=== PATIENT | female | born 1995 | race Hispanic/Latino ===

== ENCOUNTER 2022-01-15 06:06 | Emergency (ER) | payer BC, OTHER ==
[~2022-01-15] VITALS: Ht 154.9 cm; Wt 111.6 kg
[2022-01-15 07:07] LABS: HCG,QUAL RESULT NEGATIVE (NEGATIVE)
[2022-01-15 07:08] LABS: APPEARANCE,URINE Clear (CLEAR); BILIRUBIN,URINE Negative (NEGATIVE); COLOR,URINE Yellow (YELLOW); GLUCOSE, URINE (UA) Negative (NEGATIVE); KETONES,URINE Negative (NEGATIVE); LEUKOCYTE ESTERASE ,URINE Small (NEGATIVE); NITRATE,URINE Negative (NEGATIVE); OCCULT BLOOD,URINE Negative (NEGATIVE); PROTEIN,URINE Negative (NEGATIVE); UROBILINOGEN,URINE 0.2 mg/dL (0.2-1.0)
[2022-01-15] MEDS ORDERED: CYCLOBENZAPRINE HCL 10 MG TABLET PO ONE (08:00)
[2022-01-15] MEDS ORDERED: KETOROLAC 30MG VIAL (30MG/ML) IM ONE (08:00)
[2022-01-15] MEDS ORDERED: CYCL7.5T27 PO (09:06)
[2022-01-15] MEDS ORDERED: NAPR375T6 PO (09:06)
[2022-01-15 10:00] VITALS: BP 103/51
== END 2022-01-15 10:08 | disposition home or self-care (01) ==
LOC: EDH 06:06
DX: S39.012A Strain of muscle, fascia and tendon of lower back, initial encounter (principal); Z88.0 Allergy status to penicillin; X58.XXXA Exposure to other specified factors, initial encounter; Y93.89 Activity, other specified; Y92.89 Other specified places as the place of occurrence of the external cause; Y99.8 Other external cause status
CPT/HCPCS: 72100; 81003; 81025; 96372; 99284; J1885

== ENCOUNTER → 2023-06-10 | Outpatient (CLI) | payer OTHER ==
[~2023-06-10] MED LIST: CYCL7.5T27 PO; NAPR375T6 PO
[2023-06-10 08:22] LABS: BASOPHILS # (AUTO) 0.04 K/uL (0.00-0.20); BASOPHILS % (AUTO) 0.5 % (0.0-5.0); EOSINOPHILS # (AUTO) 0.19 K/uL (0.00-0.70); EOSINOPHILS % (AUTO) 2.3 % (0.0-8.0); HEMATOCRIT 43.2 % (36-48); IMMATURE GRANULOCYTE ABSOLUTE 0.04 K/uL (0-1); LYMPHOCYTES # (AUTO) 2.3 K/uL (1.0-4.8); MEAN CORPUSCULAR HEMOGLOBIN 29.1 pg (27.0-33.0); MEAN CORPUSCULAR HGB CONC 33.1 g/dL (32.0-36.0); MONOCYTES # (AUTO) 0.6 K/uL (0.1-1.0); MONOCYTES % (AUTO) 6.7 % (3.0-13.0); NEUTROPHILS # (AUTO) 5.2 K/uL (1.8-7.7); PLATELET COUNT (AUTO) 310 K/uL (130-400); RED BLOOD CELL COUNT(AUTO) 4.91 MIL/uL (4.00-5.50); RED CELL DISTRIBUTION WIDTH 12.6 % (11.0-15.5); WHITE BLOOD COUNT (AUTO) 8.4 K/uL (4.8-10.8)
[2023-06-10 08:26] LABS: BILIRUBIN,URINE NEGATIVE (NEGATIVE); COLOR,URINE YELLOW (YELLOW); GLUCOSE, URINE (UA) NEGATIVE (NEGATIVE); KETONES,URINE NEGATIVE (NEGATIVE); LEUKOCYTE ESTERASE ,URINE 75 Leu/uL (NEGATIVE); NITRATE,URINE NEGATIVE (NEGATIVE); OCCULT BLOOD,URINE NEGATIVE (NEGATIVE); PROTEIN,URINE 10 mg/dL (NEGATIVE); UROBILINOGEN,URINE 0.2 mg/dL (0.2-1.0)
[2023-06-10 08:27] LABS: ADD UA MICROSCOPIC YES; APPEARANCE,URINE HAZY (CLEAR)
[2023-06-10 08:37] LABS: HEMOGLOBIN A1C 5.6 % (4.0-6.0)
[2023-06-10 08:40] LABS: BACTERIA,URINE FEW /HPF (None Seen); MUCUS,URINE RARE LPF (None Seen); RBC,URINE 0-1 /HPF (0-1); SQUAMOUS EPITHELIAL CELL,UR MOD /HPF (0-2)
[2023-06-10 09:27] LABS: ALBUMIN 3.5 g/dL (3.5-5.0); BILIRUBIN,DIRECT 0.1 mg/dL (0.0-0.3); BILIRUBIN,TOTAL 0.3 mg/dL (0.2-1.0); CREATININE 0.8 mg/dL (0.5-1.5); POTASSIUM 3.8 mmol/L (3.5-5.1); THYROID STIMULATING HORMONE 3.12 uIU/mL (0.36-3.74); TOTAL PROTEIN, SERUM 7.6 g/dL (6.0-8.3); URIC ACID 6.8 mg/dL (2.6-7.2)
== END | disposition home or self-care (01) ==
LOC: LAB 07:29
PROVIDERS: ATTEND Internal Medicine
DX: Z00.00 Encounter for general adult medical examination without abnormal findings (principal); Z13.1 Encounter for screening for diabetes mellitus; Z13.220 Encounter for screening for lipoid disorders; Z13.29 Encounter for screening for other suspected endocrine disorder; E66.01 Morbid (severe) obesity due to excess calories; G43.809 Other migraine, not intractable, without status migrainosus; G93.2 Benign intracranial hypertension; H60.90 Unspecified otitis externa, unspecified ear; H65.499 Other chronic nonsuppurative otitis media, unspecified ear; J30.9 Allergic rhinitis, unspecified; N80.9 Endometriosis, unspecified; R53.83 Other fatigue
CPT/HCPCS: 36415; 80053; 80061; 80076; 81001; 82043; 82306; 82570; 82607; 82728; 83036; 84443; 84550; 85025; 87088

== ENCOUNTER 2023-10-04 14:15 | Emergency (ER) | payer OTHER ==
[~2023-10-04] VITALS: Ht 154.9 cm; Wt 123.4 kg
[2023-10-04] MEDS: HYDROCODONE/ACETAMINOPHEN 5/325 MG TAB PO ONE (15:02)
[2023-10-04] MEDS: DEXAMETHASONE SOD PHOSPHATE 4 MG/ML 1ML VIAL IM ONE (15:02)
[2023-10-04] MEDS: CYCLOBENZAPRINE HCL 10 MG TABLET PO ONE (15:02)
[2023-10-04] MEDS: KETOROLAC 60 MG VIAL (30MG/ML) IM ONE (15:03)
[2023-10-04] MEDS ORDERED: IBUP-2077 PO (15:54)
[2023-10-04] MEDS ORDERED: CYCL-309 PO (15:54)
[2023-10-04 16:03] VITALS: BP 132/74; PULSE 88; RESP 18; O2SAT 98
== END 2023-10-04 16:34 | disposition home or self-care (01) ==
LOC: EDH 14:15
DX: S39.012A Strain of muscle, fascia and tendon of lower back, initial encounter (principal); E66.9 Obesity, unspecified; M41.9 Scoliosis, unspecified; Z90.49 Acquired absence of other specified parts of digestive tract; Z90.89 Acquired absence of other organs; Z79.899 Other long term (current) drug therapy; Z98.890 Other specified postprocedural states; Z88.0 Allergy status to penicillin; X58.XXXA Exposure to other specified factors, initial encounter; Y93.89 Activity, other specified; Y92.89 Other specified places as the place of occurrence of the external cause; Y99.8 Other external cause status
CPT/HCPCS: 99284; 81025; 72100; 96372 ×2; J1100; J1885

== ENCOUNTER → 2023-10-09 | Outpatient (CLI) | payer OTHER ==
[~2023-10-09] MED LIST changes: +CYCL-309 PO; +IBUP-2077 PO
[2023-10-09 08:00] LABS: BASOPHILS # (AUTO) 0.07 K/uL (0.00-0.20); BASOPHILS % (AUTO) 0.6 % (0.0-5.0); EOSINOPHILS % (AUTO) 1.8 % (0.0-8.0); HEMATOCRIT 45.3 % (36-48); IMMATURE GRANULOCYTE ABSOLUTE 0.11 K/uL (0-1); LYMPHOCYTES # (AUTO) 4.8 K/uL (1.0-4.8); LYMPHOCYTES % (AUTO) 42.1 % (21.0-51.0); MEAN CORPUSCULAR HEMOGLOBIN 28.8 pg (27.0-33.0); MEAN CORPUSCULAR HGB CONC 33.1 g/dL (32.0-36.0); MEAN CORPUSCULAR VOLUME 87.1 fL (79-99); MONOCYTES # (AUTO) 0.8 K/uL (0.1-1.0); MONOCYTES % (AUTO) 7.4 % (3.0-13.0); NEUTROPHILS # (AUTO) 5.3 K/uL (1.8-7.7); NEUTROPHILS % (AUTO) 47.1 % (40.0-77.0); PLATELET COUNT (AUTO) 355 K/uL (130-400); RED CELL DISTRIBUTION WIDTH 12.7 % (11.0-15.5); WHITE BLOOD COUNT (AUTO) 11.3 K/uL (4.8-10.8)
[2023-10-09 08:37] LABS: HEMOGLOBIN A1C 5.7 % (4.0-6.0)
[2023-10-09 08:38] LABS: ALBUMIN 3.3 g/dL (3.5-5.0); BILIRUBIN,DIRECT 0.1 mg/dL (0.0-0.3); BILIRUBIN,TOTAL 0.3 mg/dL (0.2-1.0); CREATININE 0.9 mg/dL (0.5-1.5); POTASSIUM 3.9 mmol/L (3.5-5.1); THYROID STIMULATING HORMONE 7.73 uIU/mL (0.36-3.74); TOTAL PROTEIN, SERUM 6.8 g/dL (6.0-8.3)
== END | disposition home or self-care (01) ==
LOC: LAB 07:23
PROVIDERS: ATTEND Internal Medicine
DX: Z13.220 Encounter for screening for lipoid disorders (principal); Z13.1 Encounter for screening for diabetes mellitus; R53.83 Other fatigue
CPT/HCPCS: 36415; 80053; 80061; 80076; 82607; 83036; 84443; 85025

== ENCOUNTER → 2023-11-20 | Outpatient (CLI) | payer OTHER | END | disposition home or self-care (01) | LOC: RAH 10:45 | PROVIDERS: ATTEND Internal Medicine | DX: E04.2 Nontoxic multinodular goiter (principal) | CPT/HCPCS: 76536 ==

== ENCOUNTER → 2024-05-21 | Outpatient (CLI) | payer OTHER ==
[~2024-05-21] MED LIST changes: +NAPR-1505 PO; -NAPR375T6 PO
[2024-05-21 08:15] LABS: BASOPHILS # (AUTO) 0.03 K/uL (0.00-0.20); BASOPHILS % (AUTO) 0.3 % (0.0-5.0); EOSINOPHILS # (AUTO) 0.25 K/uL (0.00-0.70); EOSINOPHILS % (AUTO) 2.8 % (0.0-8.0); HEMATOCRIT 44.9 % (36-48); IMMATURE GRANULOCYTE ABSOLUTE 0.05 K/uL (0-1); LYMPHOCYTES # (AUTO) 2.4 K/uL (1.0-4.8); LYMPHOCYTES % (AUTO) 26.7 % (21.0-51.0); MEAN CORPUSCULAR HEMOGLOBIN 28.8 pg (27.0-33.0); MEAN CORPUSCULAR HGB CONC 33.4 g/dL (32.0-36.0); MEAN CORPUSCULAR VOLUME 86.2 fL (79-99); MONOCYTES # (AUTO) 0.7 K/uL (0.1-1.0); MONOCYTES % (AUTO) 7.3 % (3.0-13.0); NEUTROPHILS # (AUTO) 5.6 K/uL (1.8-7.7); NEUTROPHILS % (AUTO) 62.3 % (40.0-77.0); PLATELET COUNT (AUTO) 348 K/uL (130-400); RED BLOOD CELL COUNT(AUTO) 5.21 MIL/uL (4.00-5.50); RED CELL DISTRIBUTION WIDTH 12.9 % (11.0-15.5)
[2024-05-21 08:21] LABS: APPEARANCE,URINE CLEAR (CLEAR); BILIRUBIN,URINE NEGATIVE (NEGATIVE); COLOR,URINE LIGHT-YELLOW (YELLOW); GLUCOSE, URINE (UA) NEGATIVE (NEGATIVE); KETONES,URINE NEGATIVE (NEGATIVE); LEUKOCYTE ESTERASE ,URINE NEGATIVE Leu/uL (NEGATIVE); NITRATE,URINE NEGATIVE (NEGATIVE); OCCULT BLOOD,URINE NEGATIVE (NEGATIVE); PROTEIN,URINE NEGATIVE (NEGATIVE); UROBILINOGEN,URINE 0.2 mg/dL (0.2-1.0)
[2024-05-21 08:25] LABS: ADD UA MICROSCOPIC NO
[2024-05-21 08:25] LABS: HEMOGLOBIN A1C 5.4 % (4.0-6.0)
[2024-05-21 09:01] LABS: ALBUMIN 3.5 g/dL (3.5-5.0); BILIRUBIN,TOTAL 0.4 mg/dL (0.2-1.0); CREATININE 0.9 mg/dL (0.5-1.0); THYROID STIMULATING HORMONE 4.15 uIU/mL (0.36-3.74); TOTAL PROTEIN, SERUM 7.9 g/dL (6.0-8.3)
== END | disposition home or self-care (01) ==
LOC: LAB 07:22
PROVIDERS: ATTEND Internal Medicine
DX: Z13.220 Encounter for screening for lipoid disorders (principal); Z13.1 Encounter for screening for diabetes mellitus; R53.83 Other fatigue; E03.9 Hypothyroidism, unspecified; E04.1 Nontoxic single thyroid nodule; E53.8 Deficiency of other specified B group vitamins; G93.2 Benign intracranial hypertension
CPT/HCPCS: 36415; 80053; 80061; 81003; 82043; 82306; 82570; 82607; 83036; 84443; 85025

== ENCOUNTER → 2024-07-01 | Outpatient (CLI) | payer OTHER ==
[2024-07-01 08:50] LABS: BASOPHILS # (AUTO) 0.04 K/uL (0.00-0.20); BASOPHILS % (AUTO) 0.4 % (0.0-5.0); EOSINOPHILS # (AUTO) 0.28 K/uL (0.00-0.70); EOSINOPHILS % (AUTO) 2.9 % (0.0-8.0); HEMATOCRIT 44.3 % (36-48); IMMATURE GRANULOCYTE ABSOLUTE 0.05 K/uL (0-1); LYMPHOCYTES # (AUTO) 2.5 K/uL (1.0-4.8); LYMPHOCYTES % (AUTO) 25.9 % (21.0-51.0); MEAN CORPUSCULAR HEMOGLOBIN 29.1 pg (27.0-33.0); MEAN CORPUSCULAR HGB CONC 33.4 g/dL (32.0-36.0); MONOCYTES # (AUTO) 0.8 K/uL (0.1-1.0); MONOCYTES % (AUTO) 8.1 % (3.0-13.0); NEUTROPHILS # (AUTO) 6.1 K/uL (1.8-7.7); NEUTROPHILS % (AUTO) 62.2 % (40.0-77.0); PLATELET COUNT (AUTO) 315 K/uL (130-400); RED BLOOD CELL COUNT(AUTO) 5.09 MIL/uL (4.00-5.50); RED CELL DISTRIBUTION WIDTH 12.7 % (11.0-15.5); WHITE BLOOD COUNT (AUTO) 9.8 K/uL (4.8-10.8)
[2024-07-01 08:52] LABS: HEMOGLOBIN A1C 5.3 % (4.0-6.0)
[2024-07-01 09:24] LABS: ALBUMIN 3.2 g/dL (3.5-5.0); BILIRUBIN,TOTAL 0.4 mg/dL (0.2-1.0); CREATININE 0.8 mg/dL (0.5-1.0); POTASSIUM 4.2 mmol/L (3.5-5.1); THYROID STIMULATING HORMONE 3.23 uIU/mL (0.36-3.74); TOTAL PROTEIN, SERUM 7.2 g/dL (6.0-8.3)
== END | disposition home or self-care (01) ==
LOC: LAB 07:34
PROVIDERS: ATTEND Internal Medicine
DX: Z13.1 Encounter for screening for diabetes mellitus (principal); E03.9 Hypothyroidism, unspecified; E04.1 Nontoxic single thyroid nodule; E66.01 Morbid (severe) obesity due to excess calories; E78.5 Hyperlipidemia, unspecified; F43.9 Reaction to severe stress, unspecified
CPT/HCPCS: 36415; 80053; 80061; 82306; 82607; 83036; 84443; 85025

== ENCOUNTER 2024-09-06 17:06 | Emergency (ER) | payer OTHER ==
[~2024-09-06] VITALS: Ht 154.9 cm; Wt 129.3 kg
--- NOTE | 2024-09-06 17:22 | ERN ---
ED Note History of Present Illness Stated Complaint: BACK PAIN Chief Complaint: Back Pain-No Injury Time Seen by MD: 17:09 Time Seen by Midlevel: 17:09 Dictation: The patient is a 29-year-old female with a history of tonsillectomy who presents to the emergency department with complaints of lower back pain onset yesterday after bending down to cover some plants. Patient denies any urinary or fecal incontinence. Denies any other injuries. Allergies: Coded Allergies: Penicillins (Unverified Allergy, Unknown, 01/15/22) Home Meds Active Scripts Cyclobenzaprine HCl (Flexeril) 10 Mg Tab, 10 MG PO TID for muscle sstiffness, #14 TAB 0 Refills Prov:DANIEL FATIMA JUTE BAG CUTTING MACHINE OPERATOR 09/06/24 Ibuprofen (Ibuprofen) 600 Mg Tablet, 600 MG PO Q6H PRN for PAIN, #15 TAB Prov:DANIEL FATIMA JUTE BAG CUTTING MACHINE OPERATOR 09/06/24 Cyclobenzaprine HCl (Cyclobenzaprine HCl) 10 Mg Tablet, 10 MG PO TID for 7 Days, #21 TAB Prov:MARIA R CHAVARRIA ENVIRONMENTAL RESEARCH PROJECT MANAGER 10/04/23 Ibuprofen (Ibuprofen 800 mg Tab) 800 Mg Tab, 800 MG PO Q8H PRN for fever or pain, #30 TAB 0 Refills Prov:MARIA R CHAVARRIA ENVIRONMENTAL RESEARCH PROJECT MANAGER 10/04/23 Naproxen (Naproxen) 375 Mg Tablet.dr, 500 MG PO BID for 7 Days, #14 TAB Prov:PRIYANK ZAYAS MD 01/15/22 Cyclobenzaprine HCl (Cyclobenzaprine HCl) 7.5 Mg Tablet, 7.5 MG PO ACDINNER for 7 Days, #7 TAB Prov:PRIYANK ZAYAS MD 01/15/22 Past Medical History Past Medical History: No Pertinent History Surgical History: Tonsillectomy, Other Surgical History Other: LP X4 History: Not Applicable LMP: Aug 22, 2024 RN Note Reviewed/Agreed w/PFSH: Yes Review of System Dictation Constitutional: Negative for fever,chills, and weight loss Eyes: Negative for injury, pain,redness, and discharge ENT: Negative for injury,pain or swelling Cardiovascular: Negative for chest pain, palpitations, and edema Respiratory: Negative for shortness of breath, cough, and wheezing, Abdomen/GI: Negative for abdominal pain, nausea, vomiting, diarrhea, and constipation Back: Positive for low back pain : Negative for injury, bleeding and discharge MS/Extremity: Negative for injury and deformity Skin: Negative for rash, and discoloration Neuro: Negative for headache, weakness, numbness, tingling, and seizure Psych: Negative for suicide ideation, homicidal ideation, and hallucinations Initial Vital Sign VS Vital Signs Date Time Temp Pulse Resp B/P (MAP) Pulse Ox O2 Delivery O2 Flow Rate FiO2 09/06/24 17:10 97.9 89 16 184/117 97 Room Air 0 09/06/24 19:34 21 Physical Exam Dictation Vital Signs reviewed General Appearance: Alert, oriented x 3, no acute distress, well developed, nourished. Head and Face: non-traumatic. Eyes: PERRL, pink conjunctivas, eyelid no trauma, anterior chamber with arcus senilis. Ears: Pinnas intact and no signs of trauma or erythema ear canals clear and no discharge TM no erythema Nose: No discharge, no bleeding. Oropharynx: Mouth normal, tongue pink. pharynx clear,no erythema, tonsils no exudates, no abscesses noted, mucous membrane moist Neck: Supple, non-tender, no thyromegaly, no masses, no JVD, no bruits Breast:Deferred Chest:No tenderness, no crepitus, no paradoxical movement, no retractions Lungs:Clear, well-ventilated, symmetric, no rales, no wheezing, no rhonchi, no stridor, good breath sounds bilaterally Heart: Regular rate, regular rhythm, no murmur, no gallops Vascular: no peripheral edema, dorsalis pedis 3+ bilaterally Abdomen: Soft, positive bowel sounds, nondistended, no guarding, nontender, no rebound, no masses no hepatomegaly, no splenomegaly, no Dee's sign, no hernias. Rectal: Deferred Genital: Deferred Neurological: Normal speech, motor function intact, sensory function intact Musculoskeletal: Neck nontender, full range of motion, + nontender, full range of motion, Extremities: nontender, full range of motion Skin: Color pink, dry, no turgor, no rash, no lacerations, no abrasions, no contusions. Lymphatic: Deferred Results (Laboratory/Radiology) Laboratory/Radiology Laboratory Tests Test 09/06/24 19:03 Urine Color YELLOW (YELLOW) Urine Appearance CLOUDY (CLEAR) H Urine pH 6.0 (5.0-8.0) Urine Specific [place] OVER (1.001-1.031) Urine Protein 50 mg/dL (NEGATIVE) H Urine Glucose (UA) NEGATIVE mg/dL (NEGATIVE) Urine Ketones 5 mg/dL (NEGATIVE) H Urine Occult Blood NEGATIVE (NEGATIVE) Urine Nitrate NEGATIVE (NEGATIVE) Urine Bilirubin NEGATIVE mg/dL (NEGATIVE) Urine Urobilinogen 0.2 mg/dL (0.2-1.0) Urine Leukocyte Esterase 25 Chanda/uL (NEGATIVE) H Urine RBC 2-5 /HPF (0-1) H Urine WBC 2-5 /HPF (0-1) H Urine Squamous Epithelial Cells FEW /HPF (0-2) Urine Bacteria RARE /HPF (None Seen) Urine HCG, Qualitative NEGATIVE (NEGATIVE) REASON: back pain ORDERING PHYSICIAN: DANIEL FATIMA JUTE BAG CUTTING MACHINE OPERATOR PROCEDURE: LUMB 2 3VW - LUMBAR SPINE 2-3VWS EXAM: LUMBAR SPINE 2-3VWS CLINICAL HISTORY: back pain COMPARISON:10/04/2023. TECHNIQUE: AP lateral and L5-S1 spot images of the lumbar spine were obtained. FINDINGS: Vertebral bodies have normal height and are well aligned. No fracture identified. Disc interspace heights are preserved. Soft tissues appear unremarkable. IMPRESSION: Normal lumbar spine. Labs Reviewed?: Yes ED Course ED Course Orders Procedure Category Date Status Time Urinalysis Profile LAB 09/06/24 Complete 17:13 ,Urine Test LAB 09/06/24 Complete 17:13 Orphenadrine Citrate PHA 09/06/24 Complete (Norflex) 17:30 Triamcinolone Acet PHA 09/06/24 Complete 40mg/Ml 1ml (Kenalog 17:30 Lumbar Spine 2-3vws RAD 09/06/24 Resulted 17:19 Ketorolac 60mg/2ml PHA 09/06/24 Complete (Toradol 60mg/2ml) 20:30 Hydrocodone/Apap PHA 09/06/24 Complete 5/325 ([place] 5/325mg) 20:30 Current Medications Medications (Trade) Dose Ordered Sig/Bia Route PRN Reason Start Time Stop Time Status Last Admin Dose Admin Acetaminophen/ Hydrocodone Bitart (NORco 5/325MG) 1 tab ONCE ONCE PO 09/06/24 20:30 09/06/24 20:31 DC 09/06/24 21:36 Ketorolac Tromethamine (toRADol 60MG/ 2ML) 60 mg ONCE ONCE IM 09/06/24 20:30 09/06/24 20:31 DC 09/06/24 21:36 Orphenadrine Citrate (Norflex) 60 mg ONCE ONCE IM 09/06/24 17:30 09/06/24 17:31 DC 09/06/24 19:22 Triamcinolone Acetonide (Kenalog 40) 40 mg ONCE ONCE IM 09/06/24 17:30 09/06/24 17:31 DC 09/06/24 19:22 Vital Signs Date Time Temp Pulse Resp B/P (MAP) Pulse Ox O2 Delivery O2 Flow Rate FiO2 09/06/24 19:34 98.2 83 16 140/93 98 Room Air* 0 21 09/06/24 17:10 97.9 89 16 184/117 97 Room Air 0 Medical Decision Making MDM The patient is a 29-year-old female with a history of tonsillectomy who presents to the emergency department with complaints of lower back pain onset yesterday after bending down to cover some plants. Patient denies any urinary or fecal incontinence. Denies any other injuries. No obvious fractures on x-ray. Patient reports some improvement with pain medi cation. Patient continues in no acute distress, urinary or fecal incontinence, no decreased sensation. Differential diagnosis: Lumbar fracture, back strain, kidney stone Need for hospitalization: Patient does not meet criteria for hospitalization. There are no social concerns with this patient. DX & DISP Disposition: Discharge Departure Impression: Primary Impression: Lumbar strain Additional Impression: Low back pain Condition: Stable Scripts Cyclobenzaprine HCl (Flexeril) 10 Mg Tab 10 MG PO TID for muscle sstiffness, #14 TAB 0 Refills Prov: DANIEL FATIMA JUTE BAG CUTTING MACHINE OPERATOR 09/06/24 Ibuprofen (Ibuprofen) 600 Mg Tablet 600 MG PO Q6H PRN for PAIN, #15 TAB Prov: DANIEL FATIMA JUTE BAG CUTTING MACHINE OPERATOR 09/06/24 Additional Instructions: Please follow up with your primary doctor in 1-2 days. If symptoms worsen please return to ER. FOLLOW-UP WITH PRIMARY CARE PROVIDER IN 1 TO 2 DAYS. TAKE MEDICATIONS DIRECTED HERE IN THE EMERGENCY ROOM. OKAY TO CONTINUE HOME MEDICATIONS UNLESS OTHERWISE DISCUSSED DURING YOUR VISIT IN THE EMERGENCY ROOM TODAY. RETURN TO YOUR NEAREST EMERGENCY ROOM IF SYMPTOMS WORSEN OR IF THERE IS NO IMPROVEMENT. CALL 911 IF YOU NEED IMMEDIATE ASSISTANCE. TAKE TYLENOL OR MOTRIN [id number] NEEDED AND IF NO CONTRAINDICATIONS ARE PRESENT. INCREASE ORAL HYDRATION. A WOUND CULTURE OR URINE CULTURE WAS ORDERED HERE IN THE EMERGENCY ROOM DEPARTMENT PLEASE FOLLOW-UP WITH PRIMARY CARE PROVIDER AND ADVISE THEM TO GET REPEAT PORTS FROM OUR FACILITY. IF YOU HAD ANY JOSEFA WRAP/SPLINTS THAT WERE APPLIED HERE, PLEASE DO NOT REMOVE THEM UNTIL YOU SEE YOUR PRIMARY CARE OR SPECIALTY. Referrals: ADDISON GALLEGOS MD (PCP) Time of Disposition: 21:46 I have reviewed the case, and I agree with, Diagnosis and Plan DANIEL FATIMA Sep 06, 2024 17:21 SONIA SIEGEL DO Sep 07, 2024 03:35
--- NOTE | 2024-09-06 18:39 | NUR ---
pt arrived ft at this time
[2024-09-06] MEDS: ORPHENADRINE 60MG/2ML IM ONE (19:22)
[2024-09-06] MEDS: TRIAMCINOLONE ACETONIDE 40 MG/ML 1ML VIAL IM ONE (19:22)
[2024-09-06 19:29] LABS: APPEARANCE,URINE CLOUDY (CLEAR); BILIRUBIN,URINE NEGATIVE (NEGATIVE); COLOR,URINE YELLOW (YELLOW); GLUCOSE, URINE (UA) NEGATIVE (NEGATIVE); HCG,QUALITATIVE URINE NEGATIVE (NEGATIVE); KETONES,URINE 5 mg/dL (NEGATIVE); LEUKOCYTE ESTERASE ,URINE 25 Leu/uL (NEGATIVE); NITRATE,URINE NEGATIVE (NEGATIVE); OCCULT BLOOD,URINE NEGATIVE (NEGATIVE); PROTEIN,URINE 50 mg/dL (NEGATIVE); UROBILINOGEN,URINE 0.2 mg/dL (0.2-1.0)
[2024-09-06 19:30] LABS: ADD UA MICROSCOPIC YES
[2024-09-06 19:31] LABS: BACTERIA,URINE RARE /HPF (None Seen); MUCUS,URINE FEW LPF (None Seen); SQUAMOUS EPITHELIAL CELL,UR FEW /HPF (0-2)
[2024-09-06 19:34] VITALS: BP 140/93; PULSE 83; RESP 16; TEMP 98.3; O2SAT 98
--- NOTE | 2024-09-06 20:09 | NUR ---
transfered care to [facility] at this time
[2024-09-06] MEDS: ketOROlac 60 MG VIAL (30MG/ML) IM ONE (21:36)
[2024-09-06] MEDS: HYDROcodone/APAP 5/325 1 TAB TABLET PO ONE (21:36)
[2024-09-06] MEDS ORDERED: IBUP-2070 PO (21:44)
[2024-09-06] MEDS ORDERED: CYCL10TA16 PO (21:44)
--- NOTE | 2024-09-06 21:51 | HMCIMG ---
EXAM: LUMBAR SPINE 2-3VWS CLINICAL HISTORY: back pain COMPARISON:10/04/2023. TECHNIQUE: AP lateral and L5-S1 spot images of the lumbar spine were obtained. FINDINGS: Vertebral bodies have normal height and are well aligned. No fracture identified. Disc interspace heights are preserved. Soft tissues appear unremarkable. IMPRESSION: Normal lumbar spine.
== END 2024-09-06 22:05 | disposition home or self-care (01) ==
LOC: EDH 17:06
DX: S39.012A Strain of muscle, fascia and tendon of lower back, initial encounter (principal); Z88.0 Allergy status to penicillin; Z90.89 Acquired absence of other organs; X58.XXXA Exposure to other specified factors, initial encounter; Y93.89 Activity, other specified; Y92.89 Other specified places as the place of occurrence of the external cause; Y99.8 Other external cause status
CPT/HCPCS: 99284; 81001; 81025; 72100; 96372 ×3; J1885; J3301; J2360

== ENCOUNTER → 2024-10-08 | Outpatient (CLI) | payer OTHER ==
[~2024-10-08] MED LIST changes: +CYCL10TA16 PO; +IBUP-2070 PO
--- NOTE | 2024-10-08 15:02 | HMCIMG ---
US THYROID/NECK REASON: NONTOXIC SINGLE THYROID NODULE COMPARISON: 11/20/2023 TECHNIQUE: Routine thyroid sonogram was performed and compared to previous exam. FINDINGS: There is homogeneous appearing thyroid parenchyma. Right lobe is 4.2 x 1.1 x 1.4 cm, left 3.4 x 0.8 x 0.9 cm. There are no cysts or masses present in the right lobe. The small cyst seen on prior exam is normal Identified. Isthmus appears unremarkable. There is a 4 mm nodule lower pole left lobe. This has decreased in size from 6 mm on prior exam. IMPRESSION: 1. 4 mm nodule lower pole left lobe of the thyroid, decreased from 6 mm on prior exam. Otherwise normal thyroid sonogram.
== END | disposition home or self-care (01) ==
LOC: RAH 14:18
PROVIDERS: ATTEND Internal Medicine
DX: E04.1 Nontoxic single thyroid nodule (principal)
CPT/HCPCS: 76536

== ENCOUNTER → 2024-12-30 | Outpatient (CLI) | payer OTHER ==
[2024-12-30 08:14] LABS: BASOPHILS # (AUTO) 0.03 K/uL (0.00-0.20); BASOPHILS % (AUTO) 0.3 % (0.0-5.0); EOSINOPHILS # (AUTO) 0.22 K/uL (0.00-0.70); EOSINOPHILS % (AUTO) 2.2 % (0.0-8.0); HEMATOCRIT 47.5 % (36-48); IMMATURE GRANULOCYTE ABSOLUTE 0.08 K/uL (0-1); LYMPHOCYTES # (AUTO) 2.6 K/uL (1.0-4.8); LYMPHOCYTES % (AUTO) 26.1 % (21.0-51.0); MEAN CORPUSCULAR HEMOGLOBIN 29.5 pg (27.0-33.0); MEAN CORPUSCULAR HGB CONC 33.3 g/dL (32.0-36.0); MEAN CORPUSCULAR VOLUME 88.8 fL (79-99); MONOCYTES # (AUTO) 0.8 K/uL (0.1-1.0); MONOCYTES % (AUTO) 7.7 % (3.0-13.0); NEUTROPHILS # (AUTO) 6.2 K/uL (1.8-7.7); NEUTROPHILS % (AUTO) 62.9 % (40.0-77.0); PLATELET COUNT (AUTO) 313 K/uL (130-400); RED BLOOD CELL COUNT(AUTO) 5.35 MIL/uL (4.00-5.50); WHITE BLOOD COUNT (AUTO) 9.9 K/uL (4.8-10.8)
[2024-12-30 08:26] LABS: HEMOGLOBIN A1C 5.5 % (4.0-6.0)
[2024-12-30 08:44] LABS: ALBUMIN 3.5 g/dL (3.5-5.0); BILIRUBIN,TOTAL 0.3 mg/dL (0.2-1.0); CREATININE 0.8 mg/dL (0.5-1.0); POTASSIUM 4.2 mmol/L (3.5-5.1); THYROID STIMULATING HORMONE 5.71 uIU/mL (0.36-3.74); TOTAL PROTEIN, SERUM 7.5 g/dL (6.0-8.3)
== END | disposition home or self-care (01) ==
LOC: LAB 07:21
PROVIDERS: ATTEND Internal Medicine
DX: Z13.1 Encounter for screening for diabetes mellitus (principal); Z13.220 Encounter for screening for lipoid disorders; R53.83 Other fatigue; E04.1 Nontoxic single thyroid nodule; E66.01 Morbid (severe) obesity due to excess calories; H65.499 Other chronic nonsuppurative otitis media, unspecified ear; J30.9 Allergic rhinitis, unspecified
CPT/HCPCS: 36415; 80053; 83036; 84443; 85025

== ENCOUNTER → 2025-01-19 | Outpatient (CLI) | payer OTHER ==
--- NOTE | 2025-01-19 14:20 | HMCIMG ---
EXAM: LUMBAR SPINE 2-3VWS REASON: LUMBAR RADICULOPATHY, PARASPINAL MUSCLE SPASM. COMPARISON: None. TECHNIQUE: 3 views of the lumbar spine were obtained. FINDINGS: There is normal appearance of the lumbar vertebral bodies. Disc interspace heights are preserved. Alignment is normal. There are no visible fractures. Soft tissues appear unremarkable. IMPRESSION: 1. Normal lumbar spine.
== END | disposition home or self-care (01) ==
LOC: RAH 07:52
PROVIDERS: ATTEND Internal Medicine
DX: M54.16 Radiculopathy, lumbar region (principal); M62.830 Muscle spasm of back
CPT/HCPCS: 72100

== ENCOUNTER 2025-05-14 19:27 | Emergency (ER) | payer OTHER ==
[~2025-05-14] VITALS: Ht 154.9 cm; Wt 127.9 kg
[~2025-05-14 19:27] MED LIST changes: +IBUP-1492 PO; -IBUP-2070 PO
[2025-05-14 20:05] VITALS: BP 144/90; PULSE 86; RESP 16; TEMP 98.4; O2SAT 98
[2025-05-14] MEDS: ORPHENADRINE 60MG/2ML IM ONE (20:30)
[2025-05-14] MEDS: TRIAMCINOLONE ACETONIDE 40 MG/ML 1ML VIAL IM ONE (20:30)
--- NOTE | 2025-05-14 20:53 | ERN ---
ED Note History of Present Illness Stated Complaint: LEFT LEG PAIN Chief Complaint: Lower Extremity Pain/Injury Time Seen by MD: 19:37 Time Seen by Midlevel: 19:37 Dictation: Patient is a 30-year-old female with a history of hypertension who presents to the emergency department with complaints of left buttocks pain that radiates down her left leg onset a two weeks ago. Patient denies any trauma. Denies any paresthesia, urinary or fecal incontinence. Reports that she was seen by her primary doctor and told her it was neuropathy and a pinched nerve. Patient reports she also has labs pending at her primary doctor. Allergies: Coded Allergies: Penicillins (Unverified Allergy, Unknown, 01/15/22) Home Meds Active Scripts Cyclobenzaprine HCl (Flexeril) 10 Mg Tab, 10 MG PO TID for muscle sstiffness, #14 TAB 0 Refills Prov:DANIEL FATIMA PIGMENT PUMPER 09/06/24 Ibuprofen (Ibuprofen) 600 Mg Tablet, 600 MG PO Q6H PRN for PAIN, #15 TAB Prov:DANIEL FATIMA PIGMENT PUMPER 09/06/24 Cyclobenzaprine HCl (Cyclobenzaprine HCl) 10 Mg Tablet, 10 MG PO TID for 7 Days, #21 TAB Prov:MARIA R CHAVARRIA DRAWING FRAME TENDER 10/04/23 Ibuprofen (Ibuprofen 800 mg Tab) 800 Mg Tab, 800 MG PO Q8H PRN for fever or pain, #30 TAB 0 Refills Prov:MARIA R CHAVARRIA DRAWING FRAME TENDER 10/04/23 Naproxen (Naproxen) 375 Mg Tablet.dr, 500 MG PO BID for 7 Days, #14 TAB Prov:PRIYANK ZAYAS MD 01/15/22 Cyclobenzaprine HCl (Cyclobenzaprine HCl) 7.5 Mg Tablet, 7.5 MG PO ACDINNER for 7 Days, #7 TAB Prov:PRIYANK ZAYAS MD 01/15/22 Past Medical History Past Medical History: Hypertension Surgical History: Tonsillectomy, Other Surgical History Other: ADENOIDS History: Not Applicable LMP: Apr 15, 2025 RN Note Reviewed/Agreed w/PFSH: Yes Review of System Dictation Constitutional: Negative for fever,chills, and weight loss Eyes: Negative for injury, pain,redness, and discharge ENT: Negative for injury,pain or swelling Cardiovascular: Negative for chest pain, palpitations, and edema Respiratory: Negative for shortness of breath, cough, and wheezing, Abdomen/GI: Negative for abdominal pain, nausea, vomiting, diarrhea, and constipation Back: Negative for injury and pain : Negative for injury, bleeding and discharge MS/Extremity: Negative for injury and deformity positive for left buttocks pain, left leg pain Skin: Negative for rash, and discoloration Neuro: Negative for headache, weakness, numbness, tingling, and seizure Psych: Negative for suicide ideation, homicidal ideation, and hallucinations Initial Vital Sign VS Vital Signs Date Time Temp Pulse Resp B/P (MAP) Pulse Ox O2 Delivery O2 Flow Rate FiO2 05/14/25 19:28 98.4 85 20 165/100 96 Room Air 05/14/25 20:05 0 21 Physical Exam Dictation Vital Signs reviewed General Appearance: Alert, oriented x 3, no acute distress, well developed, nourished. Head and Face: non-traumatic. Eyes: PERRL, pink conjunctivas, eyelid no trauma, anterior chamber with arcus senilis. Ears: Pinnas intact and no signs of trauma or erythema ear canals clear and no discharge TM no erythema Nose: No discharge, no bleeding. Oropharynx: Mouth normal, tongue pink. pharynx clear,no erythema, tonsils no exudates, no abscesses noted, mucous membrane moist Neck: Supple, non-tender, no thyromegaly, no masses, no JVD, no bruits Breast:Deferred Chest:No tenderness, no crepitus, no paradoxical movement, no retractions Lungs:Clear, well-ventilated, symmetric, no rales, no wheezing, no rhonchi, no stridor, good breath sounds bilaterally Heart: Regular rate, regular rhythm, no murmur, no gallops Vascular: no peripheral edema, dorsalis pedis 3+ bilaterally Abdomen: Soft, positive bowel sounds, nondistended, no guarding, nontender, no rebound, no masses no hepatomegaly, no splenomegaly, no Dee's sign, no hernias. Rectal: Deferred Genital: Deferred Neurological: Normal speech, motor function intact, sensory function intact Musculoskeletal: Neck nontender, full range of motion, back nontender, full range of motion, Extremities: nontender, full range of motion tenderness to left buttocks area Skin: Color pink, dry, no turgor, no rash, no lacerations, no abrasions, no contusions. Lymphatic: Deferred Results (Laboratory/Radiology) Laboratory/Radiology Laboratory Tests Test 05/14/25 20:00 Urine HCG, Qualitative NEGATIVE (NEGATIVE) Labs Reviewed?: Yes ED Course ED Course Orders Procedure Category Date Status Time ,Urine Test LAB 05/14/25 Complete 19:44 Orphenadrine Citrate PHA 05/14/25 Complete (Norflex) 20:30 Triamcinolone Acet PHA 05/14/25 Complete 40mg/Ml 1ml (Kenalog 20:30 Current Medications Medications (Trade) Dose Ordered Sig/Bia Route PRN Reason Start Time Stop Time Status Last Admin Dose Admin Orphenadrine Citrate (Norflex) 60 mg ONCE ONCE IM 05/14/25 20:30 05/14/25 20:31 DC 05/14/25 20:30 Triamcinolone Acetonide (Kenalog 40) 40 mg ONCE ONCE IM 05/14/25 20:30 05/14/25 20:31 DC 05/14/25 20:30 Vital Signs Date Time Temp Pulse Resp B/P (MAP) Pulse Ox O2 Delivery O2 Flow Rate FiO2 05/14/25 20:05 98.4 86 16 144/90 98 Room Air* 0 21 05/14/25 19:28 98.4 85 20 165/100 96 Room Air Medical Decision Making MDM Patient is a 30-year-old female with a history of hypertension who presents to the emergency department with complaints of left buttocks pain that radiates down her left leg onset a two weeks ago. Patient denies any trauma. Denies any paresthesia, urinary or fecal incontinence. Reports that she was seen by her primary doctor and told her it was neuropathy and a pinched nerve. Patient reports she also has labs pending at her primary doctor. Patient with tenderness to left buttocks. No swelling to lower extremities, no erythema, ambulatory, patient neurovascularly intact. There is no tenderness mid or lower back On physical exam patient is in no acute distress, nontoxic appearance. Patient we will be discharged to follow up with PCP. Differential diagnosis:. Piriformis syndrome, sciatic nerve pain, neuropathy Need for hospitalization: Patient does not meet criteria for hospitalization. There are no social concerns with this patient. DX & DISP Disposition: Discharge Departure Impression: Primary Impression: Sciatic nerve pain Condition: Stable Scripts Ibuprofen (Ibuprofen) 600 Mg Tablet 600 MG PO Q6H PRN for PAIN, #15 TAB Prov: DANIEL FATIMA DANNIE 05/14/25 Cyclobenzaprine HCl (Flexeril) 10 Mg Tab 10 MG PO TID for muscle sstiffness, #14 TAB 0 Refills Prov: DANIEL FATIMA DANNIE 05/14/25 Additional Instructions: Please follow up with the primary doctor in 1-2 days. If anything worsens please return to ER. FOLLOW-UP WITH PRIMARY CARE PROVIDER IN 1 TO 2 DAYS. TAKE MEDICATIONS DIRECTED HERE IN THE EMERGENCY ROOM. OKAY TO CONTINUE HOME MEDICATIONS UNLESS OTHERWISE DISCUSSED DURING YOUR VISIT IN THE EMERGENCY ROOM TODAY. RETURN TO YOUR NEAREST EMERGENCY ROOM IF SYMPTOMS WORSEN OR IF THERE IS NO IMPROVEMENT. CALL 911 IF YOU NEED IMMEDIATE ASSISTANCE. TAKE TYLENOL [id number] NEEDED AND IF NO CONTRAINDICATIONS ARE PRESENT. INCREASE ORAL HYDRATION. A WOUND CULTURE OR URINE CULTURE WAS ORDERED HERE IN THE EMERGENCY ROOM DEPARTMENT PLEASE FOLLOW-UP WITH PRIMARY CARE PROVIDER AND ADVISE THEM TO GET REPEAT PORTS FROM OUR FACILITY. IF YOU HAD ANY JOSEFA WRAP/SPLINTS THAT WERE APPLIED HERE, PLEASE DO NOT REMOVE THEM UNTIL YOU SEE YOUR PRIMARY CARE OR SPECIALTY. Referrals: ADDISON GALLEGOS MD (PCP) Time of Disposition: 21:01 I have reviewed the case, and I agree with, Diagnosis and Plan DANIEL FATIMA DANNIE May 14, 2025 20:53
== END 2025-05-14 21:07 | disposition home or self-care (01) ==
LOC: EDH 19:27
DX: M54.32 Sciatica, left side (principal); I10 Essential (primary) hypertension; Z88.0 Allergy status to penicillin; Z90.89 Acquired absence of other organs
CPT/HCPCS: 99284; 81025; 96372 ×2; J3301; J2360

== ENCOUNTER → 2025-05-17 | Outpatient (CLI) | payer OTHER ==
[2025-05-17 15:39] LABS: IMMATURE GRANULOCYTE ABSOLUTE 0.13 K/uL (0-1); NUCLEATED RED BLOOD CELLS 0.0 % (0.0-0.19); PLATELET COUNT (AUTO) 375 K/uL (130-400); RED BLOOD CELL COUNT(AUTO) 5.17 MIL/uL (4.00-5.50); RED CELL DISTRIBUTION WIDTH 13.0 % (11.0-15.5); WHITE BLOOD COUNT (AUTO) 14.5 K/uL (4.8-10.8)
[2025-05-17 16:13] LABS: ERYTHROCYTE SEDIMENTATION RATE 31 MM/HR (0-20)
[2025-05-17 16:20] LABS: ASPARTATE AMINOTRANSFERASE 17.0 U/L (10-37); CREATININE 0.7 mg/dL (0.5-1.0); GLOMERULAR FILTR. RATE CALC 118.0 mL/min (>90); GLUCOSE,RANDOM 85.0 mg/dL (70-105); SODIUM SERUM 138.0 mmol/L (136-145); TOTAL PROTEIN, SERUM 7.6 g/dL (6.0-8.3); UREA NITROGEN, BLOOD 15.0 mg/dL (7-18)
== END | disposition home or self-care (01) ==
LOC: LAB 14:51
PROVIDERS: ATTEND Internal Medicine
DX: I10 Essential (primary) hypertension (principal); E04.1 Nontoxic single thyroid nodule; E66.01 Morbid (severe) obesity due to excess calories; G62.9 Polyneuropathy, unspecified; M54.16 Radiculopathy, lumbar region; R53.83 Other fatigue; Z13.220 Encounter for screening for lipoid disorders
CPT/HCPCS: 36415; 80053; 82607; 83036; 83735; 84443; 85025; 85651; 86140; 86376

== ENCOUNTER → 2025-06-07 | Outpatient (CLI) | payer OTHER ==
--- NOTE | 2025-06-08 09:50 | HMCIMG ---
EXAM: MR Lumbar Spine Without Intravenous Contrast. CLINICAL HISTORY: M54.16 RADICULOPATHY LUMBAR AREA (Hx) / M54.16 RADICULOPATHY LUMBAR AREA (DICOM Hx) (DICOM Hx) TECHNIQUE: Magnetic resonance images of the lumbar spine in multiple planes. CONTRAST: None. COMPARISON: None. FINDINGS: For this examination, spinal levels were labeled assuming five non-rib bearing, lumbar-type vertebrae with the inferior labeled L5. No acute fracture. Normal lordotic curvature. Normal vertebral body height and marrow signal intensity. Multilevel disc desiccation and mild disc bulges at L3-L4, L4-L5 and L5-S1 level with mild degenerative facet arthropathy. Mild degenerative reduction in disc space at L3-L4 and L4-L5 level. Conus medullaris terminates at the T12-L1 level. No abnormal epidural masses. The surrounding soft tissues are unremarkable. Individual spinal levels are described as follows: T12-L1: No disc bulge or herniation. No neural foraminal, lateral recess or spinal canal stenosis. L1-L2: No disc bulge or herniation. No neural foraminal, lateral recess or spinal canal stenosis. L2-L3: No disc bulge or herniation. No neural foraminal, lateral recess or spinal canal stenosis. L3-L4: Mild disc desiccation. Broad-based circumferential 4 mm disc bulge and minimal right facet joint effusion. Mild narrowing of the left lateral recess. No significant neural foraminal narrowing or spinal canal stenosis. L4-L5: Mild disc desiccation. 5 mm left paracentral disc bulge with annular tear. L5-S1: Mild disc desiccation with broad-based circumferential 4 mm disc bulge with posterior central annular tear. Mild narrowing of the left lateral recess and abutment of the left traversing S1 nerve root. No significant neural foraminal narrowing. IMPRESSION: No evidence of acute fracture or subluxation. Normal vertebral body height. Multilevel disc desiccation and mild disc bulges at L3-L4, L4-L5 and L5-S1 level and moderate degenerative changes, most prominent at L4-L5 level as described above. /[place]
== END | disposition home or self-care (01) ==
LOC: RAH 10:59
PROVIDERS: ATTEND Internal Medicine
DX: M47.817 Spondylosis without myelopathy or radiculopathy, lumbosacral region (principal); M51.379 Other intervertebral disc degeneration, lumbosacral region without mention of lumbar back pain or lower extremity pain; M48.07 Spinal stenosis, lumbosacral region; M54.16 Radiculopathy, lumbar region
CPT/HCPCS: 72148